=== PATIENT | male | born 1980 | race African-American/Black ===

== ENCOUNTER 2022-07-23 11:15 | Inpatient (IN) | payer OTHER ==
[2022-07-23 12:00] VITALS: BMI 24.4
[2022-07-23] MEDS ORDERED: NICOTINE POLACRILEX 4 MG GUM BUC PRN (15:05)
[2022-07-23] MEDS ORDERED: MAGNESIUM HYDROX 2400MG/30ML ORAL SUSPENSION 30 ML CUP PO PRN (15:05)
[2022-07-23] MEDS ORDERED: NALOXONE HCL 0.4 MG/ML VIAL IM PRN (15:05)
[2022-07-23] MEDS ORDERED: NICOTINE 21 MG/24 HOURS TOPICAL PATCH TD PRN (15:05)
[2022-07-23] MEDS ORDERED: MAG HYDROX/AL HYDROX/SIMETH 30 ML UNIT-DOSE CUP PO PRN (15:05)
[2022-07-23] MEDS ORDERED: BENZOCAINE/MENTHOL (CHLORASEPTIC ) LOZENGE MM PRN (15:05)
[2022-07-23] MEDS ORDERED: hydrOXYzine PAMOATE 25 MG CAPSULE (FP) PO PRN (15:05)
[2022-07-23] MEDS ORDERED: guaiFENesin 600 MG TABLET.ER (FP) PO PRN (15:05)
[2022-07-23] MEDS ORDERED: BENZONATATE 200 MG CAPSULE PO PRN (15:05)
[2022-07-23] MEDS ORDERED: AMMONIUM LACTATE 12% LOTION 225 GM BOTTLE TP PRN (15:05)
[2022-07-23] MEDS ORDERED: IBUPROFEN 600 MG TABLET (FP) PO PRN (15:05)
[2022-07-23] MEDS ORDERED: IBUPROFEN 400 MG TABLET (FP) PO PRN (15:05)
[2022-07-23] MEDS ORDERED: LOPERAMIDE HCL 2 MG CAPSULE PO PRN (15:05)
[2022-07-23] MEDS ORDERED: ACETAMINOPHEN 325 MG TABLET (FP) PO PRN (15:05)
[2022-07-23] MEDS ORDERED: NALOXONE HCL (KLOXXADO) 8 MG SPRAY NS PRN (15:05)
[2022-07-23] MEDS ORDERED: POLYETHYLENE GLYCOL (HEALTHYLAX) 3350 17 GM PACKET PO PRN (15:05)
[2022-07-23] MEDS ORDERED: TUBERCULIN PPD 5 TU/0.1ML VIAL ID ONE (17:20)
[2022-07-23] MEDS: ATORVASTATIN CA 40 MG TABLET (FP) PO SCH (21:02)
[2022-07-23] MEDS: THIAMINE HCL 100 MG TABLET (FP) PO SCH (21:02)
[2022-07-23] MEDS ORDERED: MELATONIN 5 MG TABLETS PO SCH (22:00)
[2022-07-23 23:17] LABS: EPI CELLS 28 /uL (0-25.1); HYALINE CASTS 7 /uL (0-3.1); URINE APPEARANCE CLEAR; URINE BACTERIA 16 /uL (0-1359); URINE BILIRUBIN NEGATIVE (NEGATIVE); URINE COLOR YELLOW; URINE GLUCOSE (UA) NEGATIVE (NEGATIVE); URINE KETONE NEGATIVE (NEGATIVE); URINE LEUK ESTERASE 2+ (NEGATIVE); URINE NITRITE NEGATIVE (NEGATIVE); URINE PROTEIN NEGATIVE (NEGATIVE); URINE RBC 14 /uL (0-23.9); URINE WBC 317 /uL (0-25.8)
[2022-07-24] MEDS ORDERED: TUBERCULIN PPD 5 TU/0.1ML VIAL ID ONE (06:49)
[2022-07-24] MEDS: NICOTINE 10 MG CARTRIDGE (INHALER) IH PRN (07:21)
[2022-07-24] MEDS: PRENATAL VITAMINS W/ FOLIC ACID TABLET (FP) PO SCH (10:32)
[2022-07-24] MEDS: CHOLECALCIFEROL (VIT D3) 400 UNIT (10 MCG) TABLET PO SCH (11:34)
[2022-07-24] MEDS: ASCORBIC ACID 250 MG TABLET (FP) PO SCH (11:34)
[2022-07-24] MEDS: VITAMIN E 400 INTERNATIONAL-UNITS CAPSULE (FP) PO SCH (11:50)
[2022-07-24 12:07] LABS: HEMATOCRIT 43.7 % (35.4-49); MCH 28.5 pg (25.7-33.7); MEAN CELL VOLUME 89.1 fl (80-96); MEAN PLT VOLUME 10.3 fl (7.5-11.1); PLATELET COUNT 222 10^3/uL (134-434); RDW 14.5 % (11.9-15.9); WHITE BLOOD COUNT 9.1 K/mm3 (4.0-10.0)
[2022-07-24 12:12] LABS: POTASSIUM 4.2 mmol/L (3.5-5.1)
[2022-07-24 12:19] LABS: ALBUMIN 3.9 g/dl (3.4-5.0); BLOOD UREA NITROGEN 11.6 mg/dL (7-18); CALCIUM 9.5 mg/dL (8.5-10.1)
[2022-07-24 12:22] LABS: CREATININE 0.9 mg/dL (0.55-1.3)
[2022-07-24 12:24] LABS: BILIRUBIN,TOTAL 0.8 mg/dL (0.2-1)
[2022-07-24] MEDS ORDERED: hydrOXYzine PAMOATE 25 MG CAPSULE (FP) PO PRN (14:30)
[2022-07-24] MEDS: MIRTAZAPINE 30 MG TABLET PO SCH (21:13)
[2022-07-24] MEDS: ATORVASTATIN CA 40 MG TABLET (FP) PO SCH (21:13)
[2022-07-24] MEDS: ARIPiprazole 10 MG TABLET PO SCH (21:13)
[2022-07-24] MEDS: HALOPERIDOL 5 MG TABLET PO SCH (21:30)
[2022-07-24] MEDS ORDERED: ARIPiprazole 5 MG TABLET ONE (22:18)
[2022-07-24] MEDS: THIAMINE HCL 100 MG TABLET (FP) PO SCH (22:20)
[2022-07-24] MEDS: BENZTROPINE MESYLATE 1 MG TABLET PO SCH (22:20)
[2022-07-25] MEDS: PRENATAL VITAMINS W/ FOLIC ACID TABLET (FP) PO SCH (09:37)
[2022-07-25] MEDS: ASCORBIC ACID 250 MG TABLET (FP) PO SCH (09:37)
[2022-07-25] MEDS: CHOLECALCIFEROL (VIT D3) 400 UNIT (10 MCG) TABLET PO SCH (09:37)
[2022-07-25] MEDS: VITAMIN E 400 INTERNATIONAL-UNITS CAPSULE (FP) PO SCH (09:37)
[2022-07-25] MEDS: NICOTINE 10 MG CARTRIDGE (INHALER) IH PRN ×2 (16:58→21:52)
[2022-07-25] MEDS ORDERED: ARIPiprazole 5 MG TABLET ONE (19:55)
[2022-07-25] MEDS ORDERED: MIRTAZAPINE 15 MG TABLET (FP) ONE (19:55)
[2022-07-25] MEDS: HALOPERIDOL 5 MG TABLET PO SCH (21:50)
[2022-07-25] MEDS: ATORVASTATIN CA 40 MG TABLET (FP) PO SCH (21:51)
[2022-07-25] MEDS: ARIPiprazole 10 MG TABLET PO SCH (21:51)
[2022-07-25] MEDS: BENZTROPINE MESYLATE 1 MG TABLET PO SCH (21:51)
[2022-07-25] MEDS: THIAMINE HCL 100 MG TABLET (FP) PO SCH (21:52)
[2022-07-25] MEDS: MIRTAZAPINE 30 MG TABLET PO SCH (21:52)
[2022-07-26] MEDS: VITAMIN E 400 INTERNATIONAL-UNITS CAPSULE (FP) PO SCH (10:04)
[2022-07-26] MEDS: PRENATAL VITAMINS W/ FOLIC ACID TABLET (FP) PO SCH (10:05)
[2022-07-26] MEDS: CHOLECALCIFEROL (VIT D3) 400 UNIT (10 MCG) TABLET PO SCH (10:05)
[2022-07-26] MEDS: ASCORBIC ACID 250 MG TABLET (FP) PO SCH (10:05)
[2022-07-26] MEDS: COLLOIDAL OATMEAL 1 BAR EACH TP PRN (12:33)
[2022-07-26] MEDS ORDERED: MIRTAZAPINE 15 MG TABLET (FP) ONE (21:35)
[2022-07-26] MEDS: NICOTINE 10 MG CARTRIDGE (INHALER) IH PRN (21:36)
[2022-07-26] MEDS: MIRTAZAPINE 30 MG TABLET PO SCH (21:38)
[2022-07-26] MEDS: ARIPiprazole 10 MG TABLET PO SCH (21:38)
[2022-07-26] MEDS: HALOPERIDOL 5 MG TABLET PO SCH (21:38)
[2022-07-26] MEDS: BENZTROPINE MESYLATE 1 MG TABLET PO SCH (21:38)
[2022-07-26] MEDS: THIAMINE HCL 100 MG TABLET (FP) PO SCH (21:38)
[2022-07-26] MEDS: ATORVASTATIN CA 40 MG TABLET (FP) PO SCH (21:38)
[2022-07-27] MEDS: CHOLECALCIFEROL (VIT D3) 400 UNIT (10 MCG) TABLET PO SCH (09:17)
[2022-07-27] MEDS: ASCORBIC ACID 250 MG TABLET (FP) PO SCH (09:17)
[2022-07-27] MEDS: VITAMIN E 400 INTERNATIONAL-UNITS CAPSULE (FP) PO SCH (09:18)
[2022-07-27] MEDS: PRENATAL VITAMINS W/ FOLIC ACID TABLET (FP) PO SCH (09:18)
[2022-07-27 11:59] LABS: EPI CELLS 4 /uL (0-25.1); HYALINE CASTS 1 /uL (0-3.1); PH,URINE 5.5 (5.0-8.0); URINE APPEARANCE CLEAR; URINE BACTERIA 7 /uL (0-1359); URINE BILIRUBIN NEGATIVE (NEGATIVE); URINE COLOR YELLOW; URINE GLUCOSE (UA) NEGATIVE (NEGATIVE); URINE KETONE NEGATIVE (NEGATIVE); URINE LEUK ESTERASE TRACE (NEGATIVE); URINE NITRITE NEGATIVE (NEGATIVE); URINE PROTEIN NEGATIVE (NEGATIVE); URINE RBC 8 /uL (0-23.9); URINE UROBILINOGEN 0.2 mg/dL (0.2-1.0); URINE WBC 101 /uL (0-25.8)
[2022-07-27] MEDS: NICOTINE 10 MG CARTRIDGE (INHALER) IH PRN ×2 (15:42→21:26)
[2022-07-27] MEDS ORDERED: MIRTAZAPINE 15 MG TABLET (FP) ONE (20:09)
[2022-07-27] MEDS: THIAMINE HCL 100 MG TABLET (FP) PO SCH (21:27)
[2022-07-27] MEDS: MIRTAZAPINE 30 MG TABLET PO SCH (21:27)
[2022-07-27] MEDS: ARIPiprazole 10 MG TABLET PO SCH (21:27)
[2022-07-27] MEDS: HALOPERIDOL 5 MG TABLET PO SCH (21:27)
[2022-07-27] MEDS: ATORVASTATIN CA 40 MG TABLET (FP) PO SCH (21:27)
[2022-07-27] MEDS: BENZTROPINE MESYLATE 1 MG TABLET PO SCH (21:27)
[2022-07-28] MEDS: ASCORBIC ACID 250 MG TABLET (FP) PO SCH (09:31)
[2022-07-28] MEDS: VITAMIN E 400 INTERNATIONAL-UNITS CAPSULE (FP) PO SCH (09:31)
[2022-07-28] MEDS: PRENATAL VITAMINS W/ FOLIC ACID TABLET (FP) PO SCH (09:31)
[2022-07-28] MEDS: CHOLECALCIFEROL (VIT D3) 400 UNIT (10 MCG) TABLET PO SCH (09:31)
[2022-07-28] MEDS: NICOTINE 10 MG CARTRIDGE (INHALER) IH PRN ×3 (09:32→22:00)
[2022-07-28] MEDS ORDERED: ARIPiprazole 5 MG TABLET ONE (19:31)
[2022-07-28] MEDS ORDERED: MIRTAZAPINE 15 MG TABLET (FP) ONE (19:31)
[2022-07-28] MEDS: MIRTAZAPINE 30 MG TABLET PO SCH (21:02)
[2022-07-28] MEDS: ARIPiprazole 10 MG TABLET PO SCH (21:02)
[2022-07-28] MEDS: ATORVASTATIN CA 40 MG TABLET (FP) PO SCH (21:02)
[2022-07-28] MEDS: HALOPERIDOL 5 MG TABLET PO SCH (21:02)
[2022-07-28] MEDS: BENZTROPINE MESYLATE 1 MG TABLET PO SCH (21:02)
[2022-07-28] MEDS: THIAMINE HCL 100 MG TABLET (FP) PO SCH (21:02)
[2022-07-29] MEDS: NICOTINE 10 MG CARTRIDGE (INHALER) IH PRN ×4 (06:22→21:15)
[2022-07-29] MEDS: VITAMIN E 400 INTERNATIONAL-UNITS CAPSULE (FP) PO SCH (10:32)
[2022-07-29] MEDS: CHOLECALCIFEROL (VIT D3) 400 UNIT (10 MCG) TABLET PO SCH (10:32)
[2022-07-29] MEDS: PRENATAL VITAMINS W/ FOLIC ACID TABLET (FP) PO SCH (10:32)
[2022-07-29] MEDS: ASCORBIC ACID 250 MG TABLET (FP) PO SCH (10:32)
[2022-07-29] MEDS: COLLOIDAL OATMEAL 1 BAR EACH TP PRN (16:34)
[2022-07-29] MEDS ORDERED: ARIPiprazole 5 MG TABLET ONE (19:04)
[2022-07-29] MEDS ORDERED: MIRTAZAPINE 15 MG TABLET (FP) ONE (19:04)
[2022-07-29] MEDS: ARIPiprazole 10 MG TABLET PO SCH (21:13)
[2022-07-29] MEDS: HALOPERIDOL 5 MG TABLET PO SCH (21:13)
[2022-07-29] MEDS: ATORVASTATIN CA 40 MG TABLET (FP) PO SCH (21:13)
[2022-07-29] MEDS: THIAMINE HCL 100 MG TABLET (FP) PO SCH (21:13)
[2022-07-29] MEDS: MIRTAZAPINE 30 MG TABLET PO SCH (21:13)
[2022-07-29] MEDS: BENZTROPINE MESYLATE 1 MG TABLET PO SCH (21:13)
[2022-07-30] MEDS: NICOTINE 10 MG CARTRIDGE (INHALER) IH PRN ×3 (06:33→21:13)
[2022-07-30] MEDS: ASCORBIC ACID 250 MG TABLET (FP) PO SCH (10:31)
[2022-07-30] MEDS: PRENATAL VITAMINS W/ FOLIC ACID TABLET (FP) PO SCH (10:31)
[2022-07-30] MEDS: VITAMIN E 400 INTERNATIONAL-UNITS CAPSULE (FP) PO SCH (10:31)
[2022-07-30] MEDS: CHOLECALCIFEROL (VIT D3) 400 UNIT (10 MCG) TABLET PO SCH (10:32)
[2022-07-30] MEDS ORDERED: ARIPiprazole 5 MG TABLET ONE (18:45)
[2022-07-30] MEDS ORDERED: MIRTAZAPINE 15 MG TABLET (FP) ONE (18:45)
[2022-07-30] MEDS: HALOPERIDOL 5 MG TABLET PO SCH (21:13)
[2022-07-30] MEDS: THIAMINE HCL 100 MG TABLET (FP) PO SCH (21:13)
[2022-07-30] MEDS: ARIPiprazole 10 MG TABLET PO SCH (21:14)
[2022-07-30] MEDS: MIRTAZAPINE 30 MG TABLET PO SCH (21:14)
[2022-07-30] MEDS: ATORVASTATIN CA 40 MG TABLET (FP) PO SCH (21:14)
[2022-07-30] MEDS: BENZTROPINE MESYLATE 1 MG TABLET PO SCH (21:14)
[2022-07-31] MEDS: NICOTINE 10 MG CARTRIDGE (INHALER) IH PRN ×3 (06:53→21:13)
[2022-07-31] MEDS: PRENATAL VITAMINS W/ FOLIC ACID TABLET (FP) PO SCH (09:56)
[2022-07-31] MEDS: CHOLECALCIFEROL (VIT D3) 400 UNIT (10 MCG) TABLET PO SCH (09:57)
[2022-07-31] MEDS: VITAMIN E 400 INTERNATIONAL-UNITS CAPSULE (FP) PO SCH (09:57)
[2022-07-31] MEDS: ASCORBIC ACID 250 MG TABLET (FP) PO SCH (09:57)
[2022-07-31] MEDS ORDERED: MIRTAZAPINE 15 MG TABLET (FP) ONE (18:49)
[2022-07-31] MEDS ORDERED: ARIPiprazole 5 MG TABLET ONE (18:49)
[2022-07-31] MEDS: ATORVASTATIN CA 40 MG TABLET (FP) PO SCH (21:12)
[2022-07-31] MEDS: THIAMINE HCL 100 MG TABLET (FP) PO SCH (21:12)
[2022-07-31] MEDS: MIRTAZAPINE 30 MG TABLET PO SCH (21:12)
[2022-07-31] MEDS: BENZTROPINE MESYLATE 1 MG TABLET PO SCH (21:12)
[2022-07-31] MEDS: HALOPERIDOL 5 MG TABLET PO SCH (21:12)
[2022-07-31] MEDS: ARIPiprazole 10 MG TABLET PO SCH (21:23)
[2022-08-01] MEDS: NICOTINE 10 MG CARTRIDGE (INHALER) IH PRN ×5 (06:41→21:45)
[2022-08-01] MEDS: CHOLECALCIFEROL (VIT D3) 400 UNIT (10 MCG) TABLET PO SCH (10:17)
[2022-08-01] MEDS: VITAMIN E 400 INTERNATIONAL-UNITS CAPSULE (FP) PO SCH (10:17)
[2022-08-01] MEDS: ASCORBIC ACID 250 MG TABLET (FP) PO SCH (10:17)
[2022-08-01] MEDS: PRENATAL VITAMINS W/ FOLIC ACID TABLET (FP) PO SCH (10:17)
[2022-08-01] MEDS ORDERED: hydrOXYzine PAMOATE 25 MG CAPSULE (FP) PO PRN (10:58)
[2022-08-01] MEDS: hydrOXYzine PAMOATE 50 MG CAPSULE (FP) PO PRN (16:48)
[2022-08-01] MEDS ORDERED: ARIPiprazole 5 MG TABLET ONE (21:43)
[2022-08-01] MEDS ORDERED: MIRTAZAPINE 15 MG TABLET (FP) ONE (21:43)
[2022-08-01] MEDS: ARIPiprazole 10 MG TABLET PO SCH (21:44)
[2022-08-01] MEDS: HALOPERIDOL 5 MG TABLET PO SCH (21:44)
[2022-08-01] MEDS: ATORVASTATIN CA 40 MG TABLET (FP) PO SCH (21:45)
[2022-08-01] MEDS: MIRTAZAPINE 30 MG TABLET PO SCH (21:45)
[2022-08-01] MEDS: THIAMINE HCL 100 MG TABLET (FP) PO SCH (21:45)
[2022-08-01] MEDS: BENZTROPINE MESYLATE 1 MG TABLET PO SCH (21:45)
[2022-08-02] MEDS: NICOTINE 10 MG CARTRIDGE (INHALER) IH PRN ×3 (06:19→15:15)
[2022-08-02] MEDS: hydrOXYzine PAMOATE 50 MG CAPSULE (FP) PO PRN ×3 (06:19→21:32)
[2022-08-02] MEDS: ASCORBIC ACID 250 MG TABLET (FP) PO SCH (09:53)
[2022-08-02] MEDS: PRENATAL VITAMINS W/ FOLIC ACID TABLET (FP) PO SCH (09:53)
[2022-08-02] MEDS: CHOLECALCIFEROL (VIT D3) 400 UNIT (10 MCG) TABLET PO SCH (09:53)
[2022-08-02] MEDS: VITAMIN E 400 INTERNATIONAL-UNITS CAPSULE (FP) PO SCH (09:53)
[2022-08-02] MEDS: ATORVASTATIN CA 40 MG TABLET (FP) PO SCH (21:29)
[2022-08-02] MEDS: HALOPERIDOL 5 MG TABLET PO SCH (21:29)
[2022-08-02] MEDS: THIAMINE HCL 100 MG TABLET (FP) PO SCH (21:29)
[2022-08-02] MEDS: BENZTROPINE MESYLATE 1 MG TABLET PO SCH (21:30)
[2022-08-02] MEDS: ARIPiprazole 10 MG TABLET PO SCH (21:30)
[2022-08-02] MEDS: MIRTAZAPINE 30 MG TABLET PO SCH (21:31)
[2022-08-03] MEDS: NICOTINE 10 MG CARTRIDGE (INHALER) IH PRN ×3 (06:21→21:23)
[2022-08-03] MEDS: CHOLECALCIFEROL (VIT D3) 400 UNIT (10 MCG) TABLET PO SCH (09:37)
[2022-08-03] MEDS: VITAMIN E 400 INTERNATIONAL-UNITS CAPSULE (FP) PO SCH (09:37)
[2022-08-03] MEDS: PRENATAL VITAMINS W/ FOLIC ACID TABLET (FP) PO SCH (09:37)
[2022-08-03] MEDS: ASCORBIC ACID 250 MG TABLET (FP) PO SCH (09:37)
[2022-08-03] MEDS: hydrOXYzine PAMOATE 50 MG CAPSULE (FP) PO PRN (20:16)
[2022-08-03] MEDS: HALOPERIDOL 5 MG TABLET PO SCH (21:21)
[2022-08-03] MEDS: THIAMINE HCL 100 MG TABLET (FP) PO SCH (21:21)
[2022-08-03] MEDS: ATORVASTATIN CA 40 MG TABLET (FP) PO SCH (21:21)
[2022-08-03] MEDS: BENZTROPINE MESYLATE 1 MG TABLET PO SCH (21:21)
[2022-08-03] MEDS: ARIPiprazole 10 MG TABLET PO SCH (21:21)
[2022-08-03] MEDS: MIRTAZAPINE 30 MG TABLET PO SCH (21:34)
[2022-08-03] MEDS ORDERED: INSULIN (NOVOLOG) ASPART 100 UNITS/ML 10ML VIAL ONE (22:29)
[2022-08-04] MEDS: NICOTINE 10 MG CARTRIDGE (INHALER) IH PRN ×4 (06:25→21:38)
[2022-08-04] MEDS: ASCORBIC ACID 250 MG TABLET (FP) PO SCH (10:37)
[2022-08-04] MEDS: CHOLECALCIFEROL (VIT D3) 400 UNIT (10 MCG) TABLET PO SCH (10:37)
[2022-08-04] MEDS: hydrOXYzine PAMOATE 50 MG CAPSULE (FP) PO PRN ×2 (10:37→21:39)
[2022-08-04] MEDS: VITAMIN E 400 INTERNATIONAL-UNITS CAPSULE (FP) PO SCH (10:38)
[2022-08-04] MEDS: PRENATAL VITAMINS W/ FOLIC ACID TABLET (FP) PO SCH (10:38)
[2022-08-04] MEDS ORDERED: ARIPiprazole 5 MG TABLET ONE (20:03)
[2022-08-04] MEDS ORDERED: MIRTAZAPINE 15 MG TABLET (FP) ONE (20:03)
[2022-08-04] MEDS: BENZTROPINE MESYLATE 1 MG TABLET PO SCH (21:39)
[2022-08-04] MEDS: THIAMINE HCL 100 MG TABLET (FP) PO SCH (21:39)
[2022-08-04] MEDS: ATORVASTATIN CA 40 MG TABLET (FP) PO SCH (21:40)
[2022-08-04] MEDS: HALOPERIDOL 5 MG TABLET PO SCH (21:40)
[2022-08-04] MEDS: MIRTAZAPINE 30 MG TABLET PO SCH (21:40)
[2022-08-04] MEDS: ARIPiprazole 10 MG TABLET PO SCH (21:42)
[2022-08-05 06:38] VITALS: PULSE 70; RESP 16; TEMP 97.3
[2022-08-05 06:39] VITALS: BP 115/73
[2022-08-05] MEDS: NICOTINE 10 MG CARTRIDGE (INHALER) IH PRN (08:18)
[2022-08-05] MEDS: VITAMIN E 400 INTERNATIONAL-UNITS CAPSULE (FP) PO SCH (09:11)
[2022-08-05] MEDS: CHOLECALCIFEROL (VIT D3) 400 UNIT (10 MCG) TABLET PO SCH (09:11)
[2022-08-05] MEDS: PRENATAL VITAMINS W/ FOLIC ACID TABLET (FP) PO SCH (09:11)
[2022-08-05] MEDS: ASCORBIC ACID 250 MG TABLET (FP) PO SCH (09:11)
== END 2022-08-05 09:16 | disposition home or self-care (01) | DRG 772 ==
LOC: YASAS 11:15 → Y3E 16:14
PROVIDERS: ADMIT Allergy & Immunology; ATTEND Psychiatry & Neurology Pain Medicine
PROC: HZ42ZZZ Group Counseling for Substance Abuse Treatment, Cognitive-Behavioral (ICD-10-PCS; principal; 2022-07-23)
DX: F12.20 Cannabis dependence, uncomplicated (principal); F17.210 Nicotine dependence, cigarettes, uncomplicated; F25.9 Schizoaffective disorder, unspecified; F43.10 Post-traumatic stress disorder, unspecified; R82.998 Other abnormal findings in urine; Z28.310 Unvaccinated for COVID-19; Z28.9 Immunization not carried out for unspecified reason; Z56.0 Unemployment, unspecified; Z59.01 Sheltered homelessness
CPT/HCPCS: 36415; 80053; 81003; 85027; 86780; 86803; 87635; 93005; 93010

== ENCOUNTER 2023-01-06 15:06 | Inpatient (IN) | payer OTHER ==
[2023-01-06 17:33] VITALS: BMI 23.7
[2023-01-06] MEDS ORDERED: guaiFENesin 600 MG TABLET.ER (FP) PO PRN (20:21)
[2023-01-06] MEDS ORDERED: MAGNESIUM HYDROX 2400MG/30ML ORAL SUSPENSION 30 ML CUP PO PRN (20:21)
[2023-01-06] MEDS ORDERED: POLYETHYLENE GLYCOL (HEALTHYLAX) 3350 17 GM PACKET PO PRN (20:21)
[2023-01-06] MEDS ORDERED: IBUPROFEN 400 MG TABLET (FP) PO PRN (20:21)
[2023-01-06] MEDS ORDERED: COLLOIDAL OATMEAL 1 BAR EACH TP PRN (20:21)
[2023-01-06] MEDS ORDERED: BENZOCAINE/MENTHOL (CHLORASEPTIC ) LOZENGE MM PRN (20:21)
[2023-01-06] MEDS ORDERED: MAG HYDROX/AL HYDROX/SIMETH 30 ML UNIT-DOSE CUP PO PRN (20:21)
[2023-01-06] MEDS ORDERED: LOPERAMIDE HCL 2 MG CAPSULE PO PRN (20:21)
[2023-01-06] MEDS ORDERED: BENZONATATE 200 MG CAPSULE PO PRN (20:21)
[2023-01-06] MEDS ORDERED: P-EPHED 60MG/TRIPROLIDI 2.5MG TABLET PO PRN (20:21)
[2023-01-06] MEDS ORDERED: ACETAMINOPHEN 325 MG TABLET (FP) PO PRN (20:21)
[2023-01-06] MEDS: MELATONIN 5 MG TABLETS PO SCH (21:39)
[2023-01-06] MEDS: THIAMINE HCL 100 MG TABLET (FP) PO SCH (21:39)
[2023-01-06] MEDS: NICOTINE POLACRILEX 2 MG GUM BUC PRN (21:40)
[2023-01-07] MEDS: NICOTINE POLACRILEX 2 MG GUM BUC PRN ×2 (06:29→17:32)
[2023-01-07] MEDS: PRENATAL VITAMINS W/ FOLIC ACID TABLET (FP) PO SCH (09:55)
[2023-01-07] MEDS: METHOCARBAMOL 500 MG TABLET PO SCH ×2 (12:01→21:26)
[2023-01-07 13:31] LABS: HEMATOCRIT 37.9 % (35.4-49); HEMOGLOBIN 12.8 GM/dL (11.7-16.9); MCH 29.9 pg (25.7-33.7); MCHC 33.8 g/dl (32.0-35.9); MEAN CELL VOLUME 88.3 fl (80-96); MEAN PLT VOLUME 9.1 fl (7.5-11.1); PLATELET COUNT 220 10^3/uL (134-434); RBC 4.29 M/mm3 (4.00-5.60); WHITE BLOOD COUNT 9.6 K/mm3 (4.0-10.0)
[2023-01-07 14:33] LABS: SYPHILIS W/ RPR CONF NON-REACTIVE (NONREACTIVE)
[2023-01-07 15:27] LABS: ALBUMIN 3.6 g/dl (3.4-5.0)
[2023-01-07 15:28] LABS: BLOOD UREA NITROGEN 14.6 mg/dL (7-18)
[2023-01-07 15:31] LABS: CREATININE 0.8 mg/dL (0.55-1.3)
[2023-01-07 15:32] LABS: TOT PROT 6.8 g/dl (6.4-8.2)
[2023-01-07 15:33] LABS: BILIRUBIN,TOTAL 0.2 mg/dL (0.2-1)
[2023-01-07 18:27] LABS: PH,URINE 8.5 (5.0-8.0); URINE APPEARANCE Clear; URINE BILIRUBIN Negative (NEGATIVE); URINE COLOR Yellow; URINE GLUCOSE (UA) Negative (NEGATIVE); URINE KETONE Negative (NEGATIVE); URINE LEUK ESTERASE Negative (NEGATIVE); URINE NITRITE Negative (NEGATIVE); URINE PROTEIN Negative (NEGATIVE)
[2023-01-07] MEDS: MIRTAZAPINE 30 MG TABLET PO SCH (21:21)
[2023-01-07] MEDS: THIAMINE HCL 100 MG TABLET (FP) PO SCH (21:21)
[2023-01-07] MEDS: BENZTROPINE MESYLATE 1 MG TABLET PO SCH (21:21)
[2023-01-07] MEDS: ARIPiprazole 10 MG TABLET PO SCH (21:24)
[2023-01-07] MEDS: HALOPERIDOL 5 MG TABLET PO SCH (21:24)
[2023-01-07] MEDS: MELATONIN 5 MG TABLETS PO SCH (21:24)
[2023-01-08] MEDS: NICOTINE POLACRILEX 2 MG GUM BUC PRN ×2 (06:25→21:41)
[2023-01-08] MEDS: METHOCARBAMOL 500 MG TABLET PO SCH ×2 (10:11→21:37)
[2023-01-08] MEDS: PRENATAL VITAMINS W/ FOLIC ACID TABLET (FP) PO SCH (10:11)
[2023-01-08] MEDS: MIRTAZAPINE 30 MG TABLET PO SCH (21:36)
[2023-01-08] MEDS: ATORVASTATIN CA 10 MG TABLET (FP) PO SCH (21:36)
[2023-01-08] MEDS: THIAMINE HCL 100 MG TABLET (FP) PO SCH (21:36)
[2023-01-08] MEDS: HALOPERIDOL 5 MG TABLET PO SCH (21:36)
[2023-01-08] MEDS: BENZTROPINE MESYLATE 1 MG TABLET PO SCH (21:36)
[2023-01-08] MEDS: OMEGA-3 ACID ETHYL ESTERS (FATTY-ACIDS) 1 GM CAPSULE (FP) PO SCH (21:37)
[2023-01-08] MEDS: MELATONIN 5 MG TABLETS PO SCH (21:37)
[2023-01-08] MEDS: ARIPiprazole 10 MG TABLET PO SCH (21:37)
[2023-01-09] MEDS: PRENATAL VITAMINS W/ FOLIC ACID TABLET (FP) PO SCH (10:07)
[2023-01-09] MEDS: OMEGA-3 ACID ETHYL ESTERS (FATTY-ACIDS) 1 GM CAPSULE (FP) PO SCH ×2 (10:07→21:28)
[2023-01-09] MEDS: ASCORBIC ACID 250 MG TABLET (FP) PO SCH (10:07)
[2023-01-09] MEDS: CHOLECALCIFEROL (VIT D3) 400 UNIT (10 MCG) TABLET PO SCH (10:07)
[2023-01-09] MEDS: METHOCARBAMOL 500 MG TABLET PO SCH ×2 (10:07→21:28)
[2023-01-09] MEDS: NICOTINE POLACRILEX 2 MG GUM BUC PRN (19:20)
[2023-01-09] MEDS: ATORVASTATIN CA 10 MG TABLET (FP) PO SCH (21:28)
[2023-01-09] MEDS: MELATONIN 5 MG TABLETS PO SCH (21:28)
[2023-01-09] MEDS: THIAMINE HCL 100 MG TABLET (FP) PO SCH (21:28)
[2023-01-09] MEDS: BENZTROPINE MESYLATE 1 MG TABLET PO SCH (21:29)
[2023-01-09] MEDS: MIRTAZAPINE 30 MG TABLET PO SCH (21:29)
[2023-01-09] MEDS: HALOPERIDOL 5 MG TABLET PO SCH (21:29)
[2023-01-09] MEDS: ARIPiprazole 10 MG TABLET PO SCH (21:29)
[2023-01-10 06:47] VITALS: RESP 18
[2023-01-10] MEDS: NICOTINE POLACRILEX 2 MG GUM BUC PRN ×3 (07:42→21:34)
[2023-01-10] MEDS: ASCORBIC ACID 250 MG TABLET (FP) PO SCH (10:09)
[2023-01-10] MEDS: CHOLECALCIFEROL (VIT D3) 400 UNIT (10 MCG) TABLET PO SCH (10:09)
[2023-01-10] MEDS: METHOCARBAMOL 500 MG TABLET PO SCH ×2 (10:09→21:33)
[2023-01-10] MEDS: OMEGA-3 ACID ETHYL ESTERS (FATTY-ACIDS) 1 GM CAPSULE (FP) PO SCH ×2 (10:09→21:33)
[2023-01-10] MEDS: PRENATAL VITAMINS W/ FOLIC ACID TABLET (FP) PO SCH (10:09)
[2023-01-10] MEDS: HALOPERIDOL 5 MG TABLET PO SCH (21:32)
[2023-01-10] MEDS: THIAMINE HCL 100 MG TABLET (FP) PO SCH (21:32)
[2023-01-10] MEDS: ATORVASTATIN CA 10 MG TABLET (FP) PO SCH (21:32)
[2023-01-10] MEDS: ARIPiprazole 10 MG TABLET PO SCH (21:33)
[2023-01-10] MEDS: MELATONIN 5 MG TABLETS PO SCH (21:33)
[2023-01-10] MEDS: MIRTAZAPINE 30 MG TABLET PO SCH (21:33)
[2023-01-10] MEDS: BENZTROPINE MESYLATE 1 MG TABLET PO SCH (21:33)
[2023-01-11] MEDS: OMEGA-3 ACID ETHYL ESTERS (FATTY-ACIDS) 1 GM CAPSULE (FP) PO SCH ×2 (09:53→21:25)
[2023-01-11] MEDS: ASCORBIC ACID 250 MG TABLET (FP) PO SCH (09:53)
[2023-01-11] MEDS: CHOLECALCIFEROL (VIT D3) 400 UNIT (10 MCG) TABLET PO SCH (09:53)
[2023-01-11] MEDS: METHOCARBAMOL 500 MG TABLET PO SCH ×2 (09:53→21:25)
[2023-01-11] MEDS: PRENATAL VITAMINS W/ FOLIC ACID TABLET (FP) PO SCH (09:53)
[2023-01-11] MEDS: NICOTINE POLACRILEX 2 MG GUM BUC PRN (18:11)
[2023-01-11] MEDS: MELATONIN 5 MG TABLETS PO SCH (21:25)
[2023-01-11] MEDS: THIAMINE HCL 100 MG TABLET (FP) PO SCH (21:25)
[2023-01-11] MEDS: MIRTAZAPINE 30 MG TABLET PO SCH (21:25)
[2023-01-11] MEDS: ATORVASTATIN CA 10 MG TABLET (FP) PO SCH (21:25)
[2023-01-11] MEDS: BENZTROPINE MESYLATE 1 MG TABLET PO SCH (21:26)
[2023-01-11] MEDS: HALOPERIDOL 5 MG TABLET PO SCH (21:26)
[2023-01-11] MEDS: ARIPiprazole 10 MG TABLET PO SCH (21:26)
[2023-01-12] MEDS: NICOTINE POLACRILEX 2 MG GUM BUC PRN ×2 (07:07→09:51)
[2023-01-12] MEDS: OMEGA-3 ACID ETHYL ESTERS (FATTY-ACIDS) 1 GM CAPSULE (FP) PO SCH ×2 (09:47→21:21)
[2023-01-12] MEDS: CHOLECALCIFEROL (VIT D3) 400 UNIT (10 MCG) TABLET PO SCH (09:47)
[2023-01-12] MEDS: PRENATAL VITAMINS W/ FOLIC ACID TABLET (FP) PO SCH (09:47)
[2023-01-12] MEDS: METHOCARBAMOL 500 MG TABLET PO SCH ×2 (09:47→21:21)
[2023-01-12] MEDS: ASCORBIC ACID 250 MG TABLET (FP) PO SCH (09:49)
[2023-01-12] MEDS: hydrOXYzine PAMOATE 25 MG CAPSULE (FP) PO PRN (09:50)
[2023-01-12] MEDS: HALOPERIDOL 5 MG TABLET PO SCH (21:20)
[2023-01-12] MEDS: MIRTAZAPINE 30 MG TABLET PO SCH (21:21)
[2023-01-12] MEDS: ARIPiprazole 10 MG TABLET PO SCH (21:21)
[2023-01-12] MEDS: MELATONIN 5 MG TABLETS PO SCH (21:21)
[2023-01-12] MEDS: ATORVASTATIN CA 10 MG TABLET (FP) PO SCH (21:21)
[2023-01-12] MEDS: BENZTROPINE MESYLATE 1 MG TABLET PO SCH (21:21)
[2023-01-12] MEDS: THIAMINE HCL 100 MG TABLET (FP) PO SCH (22:28)
[2023-01-13] MEDS: NICOTINE POLACRILEX 2 MG GUM BUC PRN ×3 (06:12→21:32)
[2023-01-13] MEDS: PRENATAL VITAMINS W/ FOLIC ACID TABLET (FP) PO SCH (10:03)
[2023-01-13] MEDS: OMEGA-3 ACID ETHYL ESTERS (FATTY-ACIDS) 1 GM CAPSULE (FP) PO SCH ×2 (10:04→21:28)
[2023-01-13] MEDS: METHOCARBAMOL 500 MG TABLET PO SCH ×2 (10:04→21:28)
[2023-01-13] MEDS: CHOLECALCIFEROL (VIT D3) 400 UNIT (10 MCG) TABLET PO SCH (10:04)
[2023-01-13] MEDS: ASCORBIC ACID 250 MG TABLET (FP) PO SCH (10:04)
[2023-01-13] MEDS: hydrOXYzine PAMOATE 25 MG CAPSULE (FP) PO PRN ×2 (10:05→21:28)
[2023-01-13] MEDS: IBUPROFEN 600 MG TABLET (FP) PO PRN ×2 (12:52→21:30)
[2023-01-13] MEDS: MELATONIN 5 MG TABLETS PO SCH (21:27)
[2023-01-13] MEDS: MIRTAZAPINE 30 MG TABLET PO SCH (21:28)
[2023-01-13] MEDS: ARIPiprazole 10 MG TABLET PO SCH (21:28)
[2023-01-13] MEDS: HALOPERIDOL 5 MG TABLET PO SCH (21:28)
[2023-01-13] MEDS: BENZTROPINE MESYLATE 1 MG TABLET PO SCH (21:28)
[2023-01-13] MEDS: THIAMINE HCL 100 MG TABLET (FP) PO SCH (21:28)
[2023-01-13] MEDS: ATORVASTATIN CA 10 MG TABLET (FP) PO SCH (21:28)
[2023-01-14] MEDS: NICOTINE POLACRILEX 2 MG GUM BUC PRN ×2 (06:44→09:53)
[2023-01-14 07:04] VITALS: TEMP 97
[2023-01-14] MEDS: PRENATAL VITAMINS W/ FOLIC ACID TABLET (FP) PO SCH (09:52)
[2023-01-14] MEDS: hydrOXYzine PAMOATE 25 MG CAPSULE (FP) PO PRN (09:52)
[2023-01-14] MEDS: CHOLECALCIFEROL (VIT D3) 400 UNIT (10 MCG) TABLET PO SCH (09:53)
[2023-01-14] MEDS: METHOCARBAMOL 500 MG TABLET PO SCH (09:53)
[2023-01-14] MEDS: OMEGA-3 ACID ETHYL ESTERS (FATTY-ACIDS) 1 GM CAPSULE (FP) PO SCH (09:53)
[2023-01-14] MEDS: ASCORBIC ACID 250 MG TABLET (FP) PO SCH (09:53)
[2023-01-14] MEDS ORDERED: LIDOCAINE 4% PATCH TP SCH (10:30)
[2023-01-14 19:39] VITALS: BP 128/70; PULSE 81
[2023-01-14] MEDS ORDERED: LIDOCAINE PATCH REMOVAL MC SCH (22:00)
== END 2023-01-14 19:50 | disposition left against medical advice (07) | DRG 770 ==
LOC: YASAS 15:06 → Y5N 20:34
PROVIDERS: ADMIT Allergy & Immunology; ATTEND Psychiatry & Neurology Pain Medicine
PROC: HZ42ZZZ Group Counseling for Substance Abuse Treatment, Cognitive-Behavioral (ICD-10-PCS; principal; 2023-01-06)
DX: F10.20 Alcohol dependence, uncomplicated (principal); F16.20 Hallucinogen dependence, uncomplicated; F12.20 Cannabis dependence, uncomplicated; F17.210 Nicotine dependence, cigarettes, uncomplicated; F25.9 Schizoaffective disorder, unspecified; F90.9 Attention-deficit hyperactivity disorder, unspecified type; E78.5 Hyperlipidemia, unspecified; G40.909 Epilepsy, unspecified, not intractable, without status epilepticus; B35.3 Tinea pedis; R29.898 Other symptoms and signs involving the musculoskeletal system; Z28.310 Unvaccinated for COVID-19; Z28.9 Immunization not carried out for unspecified reason; Z88.0 Allergy status to penicillin; Z88.2 Allergy status to sulfonamides
CPT/HCPCS: 36415; 80053; 81003; 85027; 86780; 86803; 87635